=== PATIENT | male | born 1980 | race Two or more races ===

== ENCOUNTER 2020-08-30 08:03 | Emergency (ER) | payer SELFPAY ==
[2020-08-30 08:20] VITALS: BP 127/88; PULSE 71; RESP 16; TEMP 36.4; O2SAT 97; BMI 30.7
--- NOTE | 2020-08-30 08:29 | XR_ITS ---
EXAMINATION: XR SHOULDER, RIGHT CLINICAL INFORMATION: Pain COMPARISON: None TECHNIQUE: Three views of the right shoulder. FINDINGS: Bone alignment is normal. No fracture or dislocation is seen. The glenohumeral joint is normal. There is arthritis at the acromioclavicular joint. Soft tissues are unremarkable. XR/XR shoulder RT min 2V IMPRESSION: Arthritis at the acromioclavicular joint.
--- NOTE | 2020-08-30 08:59 | ED.EXTPRO ---
HPI - Extremity Problem General Chief complaint: Extremity Injury, Upper Stated complaint: R SHOULDER PAIN Time Seen by Provider: 08/30/20 08:29 Source: patient Mode of arrival: ambulatory Limitations: no limitations History of Present Illness HPI Narrative: 40yoM c No Sig PMHx presenting to the ED c c/o atraumatic right shoulder pain radiating to fingers with associated tingling for the past week. Denies injury. 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 Denies any additional complaints or concerns at this time. Related Data Previous Rx's Medication Instructions Recorded cyclobenzaprine 10 mg PO TID PRN #10 tab 08/30/20 naproxen 500 mg PO BID PRN #10 tab 08/30/20 oxycodone-acetaminophen [Percocet] 1 tab PO Q6H PRN #10 tab 08/30/20 prednisone 20 mg PO DAILY 5 Days #5 tab 08/30/20 Allergies Allergy/AdvReac Type Severity Reaction Status Date / Time No Known Allergies [NKA] Allergy Mild NOT Unverified 07/04/20 17:11 APPLICABLE Review of Systems Review of Systems: Constitutional : No Fever, No Chills Cardiovascular : No Chest Pain, No SOB, No Dyspnea on Exertion, No Orthopnea, No Edema, No Palpitations Respiratory : No Cough, No Sputum, No Wheezing, No Dyspnea Musculoskeletal : + joint pain, No Myalgias, No Joint Swelling Skin : No Skin Lesions, No rash Neuro : No Weakness, + Numbness, + Paresthesias Yes all other systems are reviewed and are negative [facility] Past Medical History Attestation statement: The following information was validated with the patient. Social History Social History Advance Directives: No Advance Directives Information Provided: No Physical Exam Vital Signs: Vital Signs: Last Vital Signs Temp 97.5 F 08/30/20 08:20 Pulse 71 08/30/20 08:20 Resp 16 08/30/20 08:20 BP 127/88 08/30/20 08:20 Pulse Ox 97 08/30/20 08:20 Body Mass Index 30.7 vital signs have been reviewed as normal and appeared to be correct. Blood pressure normal. Heart rate normal. Respiration rate normal. Temperature normal. Oxygen saturation normal. Appearance: Alert. Oriented X3. No acute distress. Head: Normal external exam. Normocephalic. Atraumatic. Eyes: PERRLA. EOMI. Conjunctiva and sclera normal. Eyelids normal. ENT: EAC normal. Pharynx normal. Uvula midline. Moist mucous membranes. Neck: Normal inspection. Neck supple. FROM. No meningeal signs. Nontender. CVS: Normal heart rate and rhythm. Heart sound normal. No murmurs noted. Pulses normal throughout. Respiratory: No respiratory distress. Painless inspiration. Breath sounds normal. Back: Full range of motion noted. Skin: Skin warm and dry. Normal skin color. Normal skin turgor. No rashes/lesions/lacerations noted. Extremities: TTP of right shoulder at AC joint. Pt has FROM. No edema noted. No erythema or signs of infection. All Extremities exhibit normal range of motion. All other Extremities nontender. Neuro: Oriented X 3. No motor deficit. No sensory deficit. Reflexes normal. Course Course Course Narrative: 40yoM c No Sig PMHx presenting to the ED c c/o atraumatic right shoulder pain radiating to fingers with associated tingling for the past week. Denies injury. 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 Denies any additional complaints or concerns at this time. - x-ray imaging of right shoulder obtained if within normal limits will DC home with symptomatic treatment along with PCP referral instructions to return if any new or worsening symptoms. Patient understands agrees the plan. MDM - Extremity (Nontraumatic) Medical Records Attestation: I reviewed the patient's medical records. Imaging Data right shoulder: Attestation: I personally reviewed and interpreted this imaging study as follows: Radiologist's impression: FINDINGS: Bone alignment is normal. No fracture or dislocation is seen. The glenohumeral joint is normal. There is arthritis at the acromioclavicular joint. Soft tissues are unremarkable. XR/XR shoulder RT min 2V IMPRESSION: Arthritis at the acromioclavicular joint. Discharge Plan Discharge Clinical Impression: Arthritis Patient Disposition: Home, Self-Care Instructions: Arthritis (ED) Additional Instructions: I provided a few numbers below for primary care providers that you should call and schedule an appointment for new primary care provider. Prescriptions: New prednisone 20 mg tablet 20 mg PO DAILY 5 Days Qty: 5 RF: 0 naproxen 500 mg tablet 500 mg PO BID PRN (Reason: pain) Qty: 10 RF: 0 cyclobenzaprine 10 mg tablet 10 mg PO TID PRN (Reason: muscle spasm) Qty: 10 RF: 0 oxycodone-acetaminophen [Percocet] 5-325 mg tablet 1 tab PO Q6H PRN (Reason: pain) Qty: 10 RF: 0 Referrals: [facility] [Provider Group] - 2 days [facility] [Provider Group] - 2 days [facility] [Provider Group] - 2 days [facility] [Provider Group] - 2 days [facility] [place] [facility] [Provider Group] - 2 days [facility] [Provider Group] - 2 days Stand Alone Forms: Work/School Release Print Language: Bulgarian
== END 2020-08-30 09:46 | disposition home or self-care (01) ==
PROVIDERS: Emergency Provider Emergency Medicine
DX: M19.011 Primary osteoarthritis, right shoulder (principal); M25.511 Pain in right shoulder; Z79.899 Other long term (current) drug therapy
CPT/HCPCS: 73030; 99283

== ENCOUNTER 2022-07-30 20:07 | Emergency (ER) | payer OTHER, SELFPAY ==
--- NOTE | ~2022-07-30 | XR_ITS ---
EXAMINATION: XR CHEST CLINICAL INFORMATION: Fever of unknown origin COMPARISON: 11/27/2019 TECHNIQUE: Frontal view of the chest was obtained. FINDINGS: The lungs are clear with no focal consolidation. No evidence of pneumothorax, pulmonary edema, or pleural effusions. The cardiomediastinal silhouette is unremarkable. No acute osseous findings. XR/XR chest 1V IMPRESSION: No acute cardiopulmonary findings.
[2022-07-30 20:12] VITALS: BP 139/64; PULSE 120; RESP 18; TEMP 38.2; O2SAT 98; BMI 30.7
[2022-07-30] MEDS: Acetaminophen 325 MG TABLET 650 MG PO (20:17)
--- NOTE | 2022-07-30 20:18 | ECG_ITS ---
Test Reason : tachycardia Blood Pressure : / mmHG Vent. Rate : 116 BPM Atrial Rate : 116 BPM P-R Int : 142 ms QRS Dur : 076 ms QT Int : 288 ms P-R-T Axes : 042 044 001 degrees QTc Int : 400 ms Sinus tachycardia Low voltage QRS Possible Left atrial enlargement Borderline ECG When compared with ECG of 28-FEB-2009 16:05, Vent. rate has increased BY 39 BPM Referred By: Generic ED Physician Electronically Signed By:NATHANAEL DEL CID MD
[2022-07-30 20:33] LABS: MANUAL DIFF FLAG NO
[2022-07-30 20:35] LABS: Basophils Percent Auto 0.4 % (0-2); Eosinophils Percent Auto 0.6 % (0-4); Hematocrit 40.6 % (42.0-52.0); Hemoglobin 14.2 g/dl (14.0-18.0); Imm Gran Abs Auto 0.01 X10*3/uL (0.00-0.03); Imm Gran Pct Auto 0.2 % (0.0-0.4); Lymphocytes Absolute Auto 0.6 X10*3/uL (1.2-4.9); Lymphocytes Percent Auto 12.2 % (20-40); Mean Corpuscular Volume 85.8 fL (80.0-98.0); Mean Platelet Volume 9.9 fL (9.4-12.4); Monocytes Absolute Auto 0.6 X10*3/uL (0.1-1.2); Monocytes Percent Auto 12.2 % (2-11); Neutrophils Absolute Auto 3.9 x10*3/uL (2.0-8.3); Neutrophils Percent Auto 74.4 % (45-73); Platelet Count 183 X10*3/uL (160-400); Red Blood Count 4.73 X10*6/uL (4.60-5.80); Red Cell Distribution Width 11.9 % (11.0-16.0); White Blood Count 5.3 X10*3/uL (4.8-10.8)
[2022-07-30 20:50] LABS: COVID-19 Test Negative (Negative)
[2022-07-30 20:52] LABS: Alanine Aminotransferase 71 U/L (0-40); Albumin Level 4.6 g/dL (3.5-5.0); Alkaline Phosphatase 154 U/L (39-117); Anion Gap 14 (12-20); Aspartate Amino Transferase 40 U/L (5-37); Bilirubin Direct 0.5 mg/dL (0.0-0.5); Bilirubin Total 1.3 mg/dL (0.0-1.0); Blood Urea Nitrogen 14 mg/dL (9-16); Calcium 9.3 mg/dL (8.4-10.2); Carbon Dioxide 25 mmol/L (22-29); Chloride 101 mmol/L (96-108); Creatinine Clr Calc Pharmacy 93.2; Estimated Glomerular Filt Rate > 60; Glucose Random 150 mg/dL (60-115); Lipase 27 U/L (8-78); Potassium 4.9 mmol/L (3.3-5.1); Sodium 135 mmol/L (135-145); Total Protein 7.5 g/dL (6.5-8.0)
[2022-07-30 20:54] LABS: IDNOW Serial# 55D5AD1C; Influenza A Negative (Negative); Influenza B2 Negative (Negative)
[2022-07-30 23:12] VITALS: BP 137/80; PULSE 104; RESP 18; TEMP 37.7; O2SAT 98
--- NOTE | 2022-07-31 | ED_ITS ---
HPI - General Adult General Chief complaint: Upper Respiratory Symptoms Stated complaint: feels ill after flu shot Time Seen by Provider: 07/30/22 23:30 Source: patient Mode of arrival: ambulatory Limitations: no limitations History of Present Illness HPI narrative: 42-year-old male presents to the emergency department complaining of flu-like symptoms and body aches and paisn since last Wednesday. Patient reports he received the flu vaccine on Wednesday and began feeling ill on Wednesday. Patient reports he is experiencing body aches, fever, fatigue, and generalized weakness since Wednesday. Patient reports that he has tried taking ibuprofen which relieved his symptoms, however then they return. Reports of subjective fevers at home. Also vague complaints of headache, feels like his typical no truama a/c w/ this no vision changes or dizziness. Patient has received flu vaccine in the past and reports he has not experienced these symptoms. Denies shortness of breath, chest pain, abdominal pain, nausea or vomiting, leg swelling, dizziness,, changes in speech, cough, rhinorrhea, sore throat. Denies sick c ontacts Related Data Previous Rx's Medication Instructions Recorded cyclobenzaprine 10 mg tablet 10 mg PO TID PRN muscle spasm #10 08/30/20 tabs naproxen 500 mg tablet 500 mg PO BID PRN pain #10 tabs 08/30/20 oxycodone-acetaminophen 5 mg-325 1 tab PO Q6H PRN pain #10 tabs 08/30/20 mg tablet (Percocet) prednisone 20 mg tablet 20 mg PO DAILY inflammation 5 08/30/20 days #5 tabs Allergies Allergy/AdvReac Type Severity Reaction Status Date / Time No Known Allergies [NKA] Allergy Mild NOT Unverified 07/04/20 17:11 APPLICABLE Review of Systems Review of Systems: Constitutional : No Weight loss, + Fever, No Chills, + Fatigue, + Malaise ENT/Mouth : No sore throat, No Rhinorrhea Eyes: No Eye Pain, No Swelling, No Redness Cardiovascular : No Chest Pain, No SOB, No Dyspnea on Exertion, No Orthopnea, No Edema, No Palpitations Respiratory : No Cough, No Sputum, No Wheezing Gastrointestinal : No Nausea, No Vomiting, No Diarrhea, No Constipation, No abdominal Pain, No Hematochezia, No Melena Genitourinary : No Dysuria, No Urinary Frequency, No Hematuria, Musculoskeletal : No joint pain, + Myalgias, No Joint Swelling Skin : No Skin Lesions, No rash Neuro : No Weakness, No Numbness, No Dizziness, No Headache Psych : No Anxiety/Panic, No Depression All other systems reviewed and are negative Yes all other systems are reviewed and are negative [facility] Past Medical History Attestation statement: The following information was validated with the patient. Source: old records reviewed and nursing notes reviewed Social History Social History Advance Directives: No Advance Directives Information Provided: No Physical Exam ED Vital Signs: Vital Signs - 24 hr 07/30/22 20:12 07/30/22 23:12 Temperature 100.8 F H 99.9 F Pulse Rate 120 H 104 H Respiratory Rate 18 18 Blood Pressure 139/64 137/80 Pulse Oximetry 98 98 Oxygen Delivery Method Room Air Room Air BMI result Body Mass Index 30.7 vss Appearance: Alert.? Oriented X3.? No acute distress.? Head: Normocephalic, atraumatic, no step-offs or deformities Eyes: Pupils equal, round and reactive to light.? Extraocular movements intact. ENT: Pharynx normal.? Neck: Normal inspection.? Neck supple.? No meningeal signs. CVS: Normal heart rate and rhythm.? Pulses normal.? Respiratory: No respiratory distress.? Breath sounds normal.? Abdomen: Soft and nontender.? Skin: Skin warm and dry.? Normal skin color.? Normal skin turgor.? Extremities: No lower extremity edema.? No calf ttp. 5/5 strength to bilateral upper and lower extremities Back: No midline tenderness, no C-spine tenderness, full range of motion, no CVA tenderness bilaterally Neuro: Oriented X 3.? No motor deficit.? No sensory deficit. CN 2-12 intact. Patient ambulating with steady gait, normal coordination. Normal [id number], [id number], rapid alternating movements intact. Course Reevaluation(s) Reevaluation #1: CBC appears to be within normal limits. Chemistry with no acute findings. Transaminases slightly elevated and alk-phos also slightly elevated however patient not tender to palpation of abdomen on exam. No signs of acute abdomen on my examination. Total creatinine kinase slightly elevated however not meeting criteria for rhabdomyolysis. Patient tolerating p.o., temperature went down after administering Tylenol. Chest x-ray within normal limits. COVID and influenza negative. Favoring the most likely diagnosis of adverse vaccine reaction or viral illness. Time: 00:10 Medical Decision Making [facility] Narrative Medical decision making narrative: 0007 42-year-old male presents with flu like symptoms after receiving the flu shot, symptoms have been going on for 4-5 days. Physical examination benign. Neuro exam nonfocal. No meningeal signs. Patient was noted to be febrile, he was given medication and temperature went down. He is noted to be tachycardic however likely secondary to fever. Likely viral infection versus vaccine reaction. Will rule out rhabdomyolysis. History and physical examination not consistent with meningitis, encephalitis, PE, pneumonia, ACS, posterior stroke, stroke. No signs of sepsis. Plan at this time is to obtain basic labs, chest x-ray, flu/COVID. Medical Records Medical records reviewed: Yes I reviewed the patient's medical records. Lab Data Lab results reviewed: Yes I reviewed the patient's lab results. Result diagrams: 07/30/22 20:29 07/30/22 20:29 Labs: Lab Results 07/30/22 07/30/22 07/30/22 Range/Units 20:29 20:29 20:29 WBC 5.3 (4.8-10.8) X10*3/uL RBC 4.73 (4.60-5.80) X10*6/uL Hgb 14.2 (14.0-18.0) g/dl Hct 40.6 L (42.0-52.0) % MCV 85.8 (80.0-98.0) fL MCH 30.0 (27.0-33.0) pg MCHC 35.0 (31.0-36.0) g/dl RDW 11.9 (11.0-16.0) % Plt Count 183 (160-400) X10*3/uL MPV 9.9 (9.4-12.4) fL Immature Gran % (Auto) 0.2 (0.0-0.4) % Neut % (Auto) 74.4 H (45-73) % Lymph % (Auto) 12.2 L (20-40) % Kingfisher % (Auto) 12.2 H (2-11) % Eos % (Auto) 0.6 (0-4) % Baso % (Auto) 0.4 (0-2) % Lymph # (Auto) 0.6 L (1.2-4.9) X10*3/uL [place] # (Auto) 0.6 (0.1-1.2) X10*3/uL Eos # (Auto) 0.0 (0.0-0.4) X10*3/uL Baso # (Auto) 0.0 (0.0-0.2) X10*3/uL Abs Immat Gran (auto) 0.01 (0.00-0.03) X10*3/uL Absolute Neuts (auto) 3.9 (2.0-8.3) x10*3/uL Absolute Nucleated RBC 0.000 (0.0-0.012) X10*3/uL Nucleated RBC % (auto) 0.0 (0.0-0.2) /100WBC Sodium (135-145) mmol/L Potassium (3.3-5.1) mmol/L Chloride (96-108) mmol/L Carbon Dioxide (22-29) mmol/L Anion Gap (12-20) BUN (9-16) mg/dL Creatinine (0.5-1.4) mg/dL Estim Creat Clear Calc Estimated GFR Random Glucose (60-115) mg/dL Calcium (8.4-10.2) mg/dL Total Bilirubin (0.0-1.0) mg/dL Direct Bilirubin (0.0-0.5) mg/dL AST (5-37) U/L ALT (0-40) U/L Alkaline Phosphatase (39-117) U/L Total Creatine Kinase (38-174) U/L Total Protein (6.5-8.0) g/dL Albumin (3.5-5.0) g/dL Lipase (8-78) U/L COVID-19 ([facility]) Negative (Negative) COVID-19 Clin Com See Note Influenza Type A (ASAF) Negative (Negative) Influenza Type B (ASAF) Negative (Negative) Influenza A & B Note See Note 07/30/22 Range/Units 20:29 WBC (4.8-10.8) X10*3/uL RBC (4.60-5.80) X10*6/uL Hgb (14.0-18.0) g/dl Hct (42.0-52.0) % MCV (80.0-98.0) fL MCH (27.0-33.0) pg MCHC (31.0-36.0) g/dl RDW (11.0-16.0) % Plt Count (160-400) X10*3/uL MPV (9.4-12.4) fL Immature Gran % (Auto) (0.0-0.4) % Neut % (Auto) (45-73) % Lymph % (Auto) (20-40) % Kingfisher % (Auto) (2-11) % Eos % (Auto) (0-4) % Baso % (Auto) (0-2) % Lymph # (Auto) (1.2-4.9) X10*3/uL [place] # (Auto) (0.1-1.2) X10*3/uL Eos # (Auto) (0.0-0.4) X10*3/uL Baso # (Auto) (0.0-0.2) X10*3/uL Abs Immat Gran (auto) (0.00-0.03) X10*3/uL Absolute Neuts (auto) (2.0-8.3) x10*3/uL Absolute Nucleated RBC (0.0-0.012) X10*3/uL Nucleated RBC % (auto) (0.0-0.2) /100WBC Sodium 135 (135-145) mmol/L Potassium 4.9 (3.3-5.1) mmol/L Chloride 101 (96-108) mmol/L Carbon Dioxide 25 (22-29) mmol/L Anion Gap 14 (12-20) BUN 14 (9-16) mg/dL Creatinine 1.04 (0.5-1.4) mg/dL Estim Creat Clear Calc 93.2 Estimated GFR > 60 Random Glucose 150 H (60-115) mg/dL Calcium 9.3 (8.4-10.2) mg/dL Total Bilirubin 1.3 H (0.0-1.0) mg/dL Direct Bilirubin 0.5 (0.0-0.5) mg/dL AST 40 H (5-37) U/L ALT 71 H (0-40) U/L Alkaline Phosphatase 154 H (39-117) U/L Total Creatine Kinase 181 H (38-174) U/L Total Protein 7.5 (6.5-8.0) g/dL Albumin 4.6 (3.5-5.0) g/dL Lipase 27 (8-78) U/L COVID-19 ([facility]) (Negative) COVID-19 Clin Com Influenza Type A (ASAF) (Negative) Influenza Type B (ASAF) (Negative) Influenza A & B Note Critical Care Time Critical Care Time Critical Care Time: No Discharge Plan Discharge Clinical Impression: Viral infection, Adverse effect of vaccine Patient Disposition: Home, Self-Care Instructions: Viral Syndrome (ED) Additional Instructions: Take your medications as prescribed. If you were prescribed antibiotics today, it is important that you take your medication to their entirety, do not skip any doses, do not finish them early. Follow-up with your primary care provider this week. Return to the emergency department with new or worsening symptoms. Such as fevers, chills, chest pain, shortness of breath, nausea, vomiting, dizziness, headache, vision changes, lethargy, weakness, changes in speech, weakness.. In case of emergency call 911 You can take ibuprofen every 6 hours, Tylenol every 4 as needed for pain discomfort fevers. Drink plenty of fluids. New or worsening symptoms should warrant emergency department re-evaluation. XR/XR chest 1V IMPRESSION: No acute cardiopulmonary findings. ? Prescriptions: No Action prednisone 20 mg tablet 20 mg PO DAILY 5 Days Qty: 5 0RF naproxen 500 mg tablet 500 mg PO BID PRN (Reason: pain) Qty: 10 0RF cyclobenzaprine 10 mg tablet 10 mg PO TID PRN (Reason: muscle spasm) Qty: 10 0RF oxycodone-acetaminophen [Percocet] 5-325 mg tablet 1 tab PO Q6H PRN (Reason: pain) Qty: 10 0RF Referrals: Physician,Unknown J [Primary Care Provider] - 2 days Stand Alone Forms: Work/School Release
[2022-07-31] MEDS: Ketorolac Tromethamine 15 MG/ML VIAL 30 MG IM (00:26)
== END 2022-07-31 00:29 | disposition home or self-care (01) ==
PROVIDERS: Physician Assistant; Emergency Provider Internal Medicine
DX: B34.9 Viral infection, unspecified (principal); R50.9 Fever, unspecified; T50.B95A Adverse effect of other viral vaccines, initial encounter; Y92.019 Unspecified place in single-family (private) house as the place of occurrence of the external cause; Z20.822 Contact with and (suspected) exposure to COVID-19
CPT/HCPCS: 36415; 71045; 80053; 82248; 82550; 83690; 85025; 87502; 87635; 93005; 96372; 99284; J1885

== ENCOUNTER 2023-04-10 13:45 | Emergency (ER) | payer OTHER, SELFPAY ==
[2023-04-10 14:08] VITALS: BP 116/70; PULSE 98; RESP 16; TEMP 36.6; O2SAT 95; BMI 31.5
--- NOTE | 2023-04-10 16:58 | ED_ITS ---
HPI - General Adult General Chief complaint: Extremity Injury, Lower Stated complaint: l foot pain Time Seen by Provider: 04/10/23 15:10 History of Present Illness HPI narrative: patient complains of left foot pain without injury for several days, he does have a history of gout but only in his big toe and now it is hurting the foot and the ankle, he says the foot is swollen with some redness, denies any fever or chills has no numbness or weakness has no other skin complaints or extremity complaints Related Data Previous Rx's Medication Instructions Recorded cyclobenzaprine 10 mg tablet 10 mg PO TID PRN muscle spasm #10 08/30/20 tabs naproxen 500 mg tablet 500 mg PO BID PRN pain #10 tabs 08/30/20 oxycodone-acetaminophen 5 mg-325 1 tab PO Q6H PRN pain #10 tabs 08/30/20 mg tablet (Percocet) prednisone 20 mg tablet 20 mg PO DAILY inflammation 5 08/30/20 days #5 tabs acetaminophen 500 mg tablet 1,000 mg PO TID PRN pain #30 tabs 04/10/23 cephalexin 500 mg tablet 500 mg PO QID 5 days #20 tabs 04/10/23 ibuprofen 800 mg tablet 800 mg PO Q8H PRN pain #20 tabs 04/10/23 oxycodone 5 mg tablet 5 mg PO Q6H PRN pain #14 tabs 04/10/23 prednisone 20 mg tablet 60 mg PO DAILY 4 days #12 tabs 04/10/23 Allergies Allergy/AdvReac Type Severity Reaction Status Date / Time No Known Allergies [NKA] Allergy Mild NOT Unverified 04/10/23 14:08 APPLICABLE [facility] Past Medical History Source: nursing notes reviewed Social History Social History Advance Directives: No Advance Directives Information Provided: No Physical Exam ED Vital Signs: Vital Signs - 24 hr 04/10/23 14:08 Temperature 98 F Pulse Rate 98 Respiratory Rate 16 Blood Pressure 116/70 Pulse Oximetry 95 Oxygen Delivery Method Room Air BMI result Body Mass Index 31.5 general appearance is no distress The neck is supple Respiratory no distress Extremities full range of motion x4 The left ankle and foot there is redness on the dorsum of the foot it is tender to the touch it is mildly swollen there is no fluctuance there is no wound, the ankle has full range of motion but it was mildly uncomfortable, toes have full range of motion there is no red stripe up the leg there is no calf tenderness no upper leg tenderness, only tenderness is dorsum of the foot and the ankle Other extremities normal Course Course Course Narrative: patient is advised this is likely gout of the foot or the ankle and the foot, but as there was redness warmth and tenderness there is a chance it is a cellulitis so he is treated for both conditions Gout is treated with prednisone Motrin and analgesics, possible cellulitis treated with Keflex for 5 days He is discharged from the ER ambulating with a limp, no evidence of septic joint, good range of motion in ankle and foot Discharge Plan Discharge Clinical Impression: Gout, Cellulitis Patient Disposition: Home, Self-Care Additional Instructions: this is probably gout but might be a skin infection so I am treating for both gout and possible skin infection cellulitis with Keflex antibiotic Follow with primary doctor Return to the ER any time for any worse condition or any concerns Prescriptions: New prednisone 20 mg tablet 60 mg PO DAILY 4 Days Qty: 12 0RF ibuprofen 800 mg tablet 800 mg PO Q8H PRN (Reason: pain) Qty: 20 0RF oxycodone 5 mg tablet 5 mg PO Q6H PRN (Reason: pain) Qty: 14 0RF Rx Instructions: Partial Fill upon patient request. acetaminophen 500 mg tablet 1,000 mg PO TID PRN (Reason: pain) Qty: 30 0RF cephalexin 500 mg tablet 500 mg PO QID 5 Days Qty: 20 0RF No Action prednisone 20 mg tablet 20 mg PO DAILY 5 Days Qty: 5 0RF naproxen 500 mg tablet 500 mg PO BID PRN (Reason: pain) Qty: 10 0RF cyclobenzaprine 10 mg tablet 10 mg PO TID PRN (Reason: muscle spasm) Qty: 10 0RF oxycodone-acetaminophen [Percocet] 5-325 mg tablet 1 tab PO Q6H PRN (Reason: pain) Qty: 10 0RF
[2023-04-10] MEDS: predniSONE 20 MG TABLET 60 MG PO (17:09)
[2023-04-10] MEDS: Acetaminophen 325 MG TABLET 975 MG PO (17:09)
[2023-04-10] MEDS: cephALEXin 500 MG CAPSULE PO (17:10)
[2023-04-10] MEDS: Ibuprofen 800 MG TABLET PO (17:10)
== END 2023-04-10 17:20 | disposition home or self-care (01) ==
PROVIDERS: Emergency Provider Emergency Medicine
DX: M10.9 Gout, unspecified (principal); L03.116 Cellulitis of left lower limb; M79.672 Pain in left foot; Z79.899 Other long term (current) drug therapy
CPT/HCPCS: 99283

== ENCOUNTER 2024-05-06 05:46 | Emergency (ER) | payer OTHER, SELFPAY ==
--- NOTE | ~2024-05-06 | XR_ITS ---
EXAMINATION: XR CHEST CLINICAL INFORMATION: Cough. COMPARISON: 07/30/2022 TECHNIQUE: Frontal view of the chest was obtained. FINDINGS: No significant abnormality is noted involving the heart, lungs, mediastinum, bony thorax or soft tissues. XR/XR chest 1V IMPRESSION: Unremarkable examination.
[2024-05-06 05:56] VITALS: BP 128/80; PULSE 95; RESP 18; TEMP 36.6; O2SAT 99; BMI 31.5
[2024-05-06 06:19] LABS: IDNOW Serial# 6674DD1D; Strep A Nucleic Acid Negative (Negative)
[2024-05-06 06:20] VITALS: O2SAT 97
[2024-05-06 06:46] LABS: Influenza A PCR NEGATIVE (Negative); Influenza B PCR NEGATIVE (Negative); Resp Syncy Virus RNA Qual PCR NEGATIVE (Negative); SARS COV2 PCR INHOUSE NEGATIVE (Negative)
--- NOTE | 2024-05-06 06:53 | ED_ITS ---
HPI - URI/Sore Throat General Chief Complaint: Upper Respiratory Symptoms Stated Complaint: throat hurts Time Seen by Provider: 05/06/24 06:27 Source: patient Mode of arrival: ambulatory Limitations: no limitations History of Present Illness ED Provider: Sravan Zazueta PA-C HPI Narrative: 43 yo male presents to the ER for evaluation of sore throat and cough for the last 10 days. He states he has had a sore throat for almost 2 weeks now. Pain is worse in the morning and with swallowing. He is eating and drinking normally. He states he feels like he has some swollen lymph nodes in his neck. He also has some cough and congestion in his chest. He has intermittent runny nose. No history of seasonal allergies, no itchy or watery eyes. No fevers, nausea, vomiting, abdominal pain. No known sick contacts. No chest pain. MD elicited complaint: cough, sore throat, rhinorrhea and nasal congestion Onset (ago): week(s) (2) Consistency: intermittent Severity: moderate Description of mucous: clear and watery Able to tolerate fluids by mouth: Yes Exacerbating factors: swallowing Relieving factors: nothing Associated symptoms: nasal congestion and ear pain Treatments prior to arrival: none Related Data Previous Rx's ?Medication ?Instructions ?Recorded cyclobenzaprine 10 mg tablet 10 mg PO TID PRN muscle spasm #10 08/30/20 tabs naproxen 500 mg tablet 500 mg PO BID PRN pain #10 tabs 08/30/20 oxycodone-acetaminophen 5 mg-325 1 tab PO Q6H PRN pain #10 tabs 08/30/20 mg tablet (Percocet) prednisone 20 mg tablet 20 mg PO DAILY inflammation 5 08/30/20 days #5 tabs acetaminophen 500 mg tablet 1,000 mg (2 x 500 mg) PO TID PRN 04/10/23 pain #30 tabs cephalexin 500 mg tablet 500 mg PO QID 5 days #20 tabs 04/10/23 ibuprofen 800 mg tablet 800 mg PO Q8H PRN pain #20 tabs 04/10/23 oxycodone 5 mg tablet 5 mg PO Q6H PRN pain #14 tabs 04/10/23 prednisone 20 mg tablet 60 mg (3 x 20 mg) PO DAILY 4 days 04/10/23 #12 tabs benzonatate 100 mg capsule 100 mg PO TID PRN cough #20 caps 05/06/24 fluticasone propionate 50 2 spray intranasal DAILY #16 grams 05/06/24 mcg/actuation nasal spray,suspension (Flonase Allergy Relief) Allergies Allergy/AdvReac Type Severity Reaction Status Date / Time No Known Allergies [NKA] Allergy Mild NOT Verified 05/06/24 05:57 APPLICABLE Review of Systems Review of Systems: Yes all other systems are reviewed and are negative [facility] Social History Social History Alcohol intake: never Smoked in Last 30 Days: No Use of substances other than those prescribed or required for medical reasons: No Advance Directives: No Advance Directives Information Provided: No Do you have a plan to hurt others: No Plan Physical Exam Vital Signs: Vital Signs: Last Vital Signs Temp 98.0 F 05/06/24 07:05 Pulse 81 05/06/24 07:05 Resp 17 05/06/24 07:05 BP 121/79 05/06/24 07:05 Pulse Ox 97 05/06/24 07:05 O2 Del Method Room Air 05/06/24 07:05 BMI result Body Mass Index 31.5 Appearance: Alert. Oriented X3. No acute distress. Head: normocephalic, atraumatic. Eyes: Pupils equal, round and reactive to light. No scleral injection ENT: Pharynx with mild generalized erythema posteriorly. No tonsillar swelling or exudate. Normal voice, handling secretions normally. Normal tympanic membranes bilaterally. Neck: Normal inspection. Mild bilateral lymphadenopathy along the anterior cervical chains CVS: Normal heart rate and rhythm. Pulses normal. Respiratory: No respiratory distress. Breath sounds normal. Abdomen: Soft and nontender. +BS x4 Skin: Skin warm and dry. Normal skin color. Normal skin turgor. No rashes. Extremities: No lower extremity edema. No joint swelling. Neuro/psych: Oriented X 3. Grossly normal, nonfocal. Normal speech and cognition Medical Decision Making Medical Decision Making MDM Narrative: 43-year-old male with no medical history presents to the ER for evaluation of sore throat, cough, runny nose for the last 2 weeks. No fevers. On arrival to the ER he is hemodynamically stable, nontoxic appearing. Vital signs are stable. Exam is largely unremarkable, he has mild posterior pharyngeal erythema without any evidence of tonsillar abscess. He is handling secretions normally. His lung sounds are clear to auscultation. Low clinical suspicion for pneumonia. Chest x-ray reviewed, no infiltrate or effusion. His viral studies were also negative today. Strep throat was negative. His symptoms most likely due to a viral process versus possible seasonal allergies. We discussed supportive care. Will start Flonase for nasal congestion, postnasal drip leading to sore throat. Tessalon also prescribed. Stable for discharge home with supportive care and outpatient follow-up as needed. Differential Diagnosis Differential Diagnoses: The differential diagnosis associated with the presentation includes strep, covid, flu, rsv, other viral syndrome, bronchitis, pneumonia, no evidence of peritonsillar abcsess or retropharyngeal abscess Lab Data MDM Lab Attestation statement: I reviewed the patient's lab results. Negative studies Labs: Lab Results 05/06/24 Range/Units 06:02 Influenza Type A (PCR) NEGATIVE (Negative) Influenza Type B (PCR) NEGATIVE (Negative) RSV RNA Qual (PCR) NEGATIVE (Negative) SARS-CoV-2 RNA (RT-PCR) NEGATIVE (Negative) S. pyogenes GrpA ASAF Negative (Negative) Independent Interpretation I performed an independent interpretation of an: Plain X-Ray Interpretation: No infiltrate or effusion, agree with radiology read Radiology Impression Discussion of test interpretation with radiology: I have reviewed the radiologist's reading. Radiologist Impression: EXAMINATION: XR CHEST CLINICAL INFORMATION: Cough. COMPARISON: 07/30/2022 TECHNIQUE: Frontal view of the chest was obtained. FINDINGS: No significant abnormality is noted involving the heart, lungs, mediastinum, bony thorax or soft tissues. XR/XR chest 1V IMPRESSION: Unremarkable examination. External Record Review External record reviewed: Outpatient record and Prior outpatient labs Tests considered The following testing was considered but not selected: Considered lab workup however symptoms are mild, exam is reassuring, vital signs are stable Prescription Management I considered prescription management with: Pain Medication and Antibiotic Critical Care Time Critical Care Time Critical Care Time: No Discharge Plan Discharge Clinical Impression: Upper respiratory infection Patient Disposition: Home, Self-Care Instructions: Upper Respiratory Infection (DC) Additional Instructions: Negative for strep throat, COVID, flu, RSV. Your chest x-ray was normal. You may have a viral illness that is taking time to resolve. Treatment is supportive care, rest, plenty of oral hydration, [id number] cold and flu medications for your symptoms. You also may have some postnasal drip from possible seasonal allergies Recommend starting the prescribed nasal spray to help decrease runny nose and throat pain. Take the prescribed medication as needed for cough Recommend warm salt water gargles 3 times per day. Recommend Cepacol lozenges or Chloraseptic spray for your sore throat. Take Tylenol and Motrin as needed for pain. Follow-up with your doctor as needed. If you develop new or worsening symptoms call 911 or come back to the ER for further evaluation. Prescriptions: New fluticasone propionate [Flonase Allergy Relief] 50 mcg/actuation spray,suspension 2 spray intranasal DAILY Qty: 16 0RF Rx Instructions: administer into each nostril benzonatate 100 mg capsule 100 mg PO TID PRN (Reason: cough) Qty: 20 0RF No Action prednisone 20 mg tablet 20 mg PO DAILY 5 Days Qty: 5 0RF naproxen 500 mg tablet 500 mg PO BID PRN (Reason: pain) Qty: 10 0RF cyclobenzaprine 10 mg tablet 10 mg PO TID PRN (Reason: muscle spasm) Qty: 10 0RF oxycodone-acetaminophen [Percocet] 5-325 mg tablet 1 tab PO Q6H PRN (Reason: pain) Qty: 10 0RF prednisone 20 mg tablet 60 mg PO DAILY 4 Days Qty: 12 0RF ibuprofen 800 mg tablet 800 mg PO Q8H PRN (Reason: pain) Qty: 20 0RF oxycodone 5 mg tablet 5 mg PO Q6H PRN (Reason: pain) Qty: 14 0RF Rx Instructions: Partial Fill upon patient request. acetaminophen 500 mg tablet 1,000 mg PO TID PRN (Reason: pain) Qty: 30 0RF cephalexin 500 mg tablet 500 mg PO QID 5 Days Qty: 20 0RF Interventions: ED Discharge Assessment Last Done: 05/06/24 07:05 Discharge Date/Time: 05/06/24 07:06 Print Language: Danish
[2024-05-06 07:03] VITALS: BP 121/79; PULSE 81; RESP 17; TEMP 36.6; O2SAT 97
[2024-05-06 07:05] VITALS: BP 121/79; PULSE 81; RESP 17; TEMP 36.7; O2SAT 97
== END 2024-05-06 07:06 | disposition home or self-care (01) ==
PROVIDERS: Emergency Provider Internal Medicine
DX: J06.9 Acute upper respiratory infection, unspecified (principal); J02.9 Acute pharyngitis, unspecified; R05.9 Cough, unspecified; Z03.818 Encounter for observation for suspected exposure to other biological agents ruled out
CPT/HCPCS: 0241U; 71045; 87651; 99283; 99284

== ENCOUNTER 2024-07-24 19:55 | Emergency (ER) | payer OTHER, SELFPAY ==
[2024-07-24 20:17] VITALS: BP 123/81; PULSE 82; RESP 18; TEMP 36.7; O2SAT 97; BMI 31.0
--- NOTE | 2024-07-24 20:17 | ED_ITS ---
HPI - Ear Problem General Stated complaint: bilateral ear pain Time Seen by Provider: 07/24/24 20:20 Source: patient Mode of arrival: ambulatory Limitations: no limitations History of Present Illness ED Provider: Sravan Zazueta PA-C HPI Narrative: 44-year-old male presents to the ER for evaluation of bilateral ear pain, right worse than left for the last 3 or 4 days. He feels like his hearing is muffled. He has throbbing pain in the ears, no drainage. He has been sick with runny nose, nasal congestion and sinus pain. He is coughing when he lays down. No fever or chills. No known sick contacts ray no chest pain or shortness of breath. No abdominal pain, nausea, vomiting, diarrhea. MD Complaint: ear pain and decreased hearing Location: bilateral Duration: constant Severity: moderate Relieving factors: NDAIDs Exacerbating factors: position of head Context: recent illness Associated symptoms ear: decreased hearing and rhinorrhea Treatment prior to arrival: none Related Data Previous Rx's ?Medication ?Instructions ?Recorded cyclobenzaprine 10 mg tablet 10 mg PO TID PRN muscle spasm #10 08/30/20 tabs naproxen 500 mg tablet 500 mg PO BID PRN pain #10 tabs 08/30/20 oxycodone-acetaminophen 5 mg-325 1 tab PO Q6H PRN pain #10 tabs 08/30/20 mg tablet (Percocet) prednisone 20 mg tablet 20 mg PO DAILY inflammation 5 08/30/20 days #5 tabs acetaminophen 500 mg tablet 1,000 mg (2 x 500 mg) PO TID PRN 04/10/23 pain #30 tabs cephalexin 500 mg tablet 500 mg PO QID 5 days #20 tabs 04/10/23 ibuprofen 800 mg tablet 800 mg PO Q8H PRN pain #20 tabs 04/10/23 oxycodone 5 mg tablet 5 mg PO Q6H PRN pain #14 tabs 04/10/23 prednisone 20 mg tablet 60 mg (3 x 20 mg) PO DAILY 4 days 04/10/23 #12 tabs benzonatate 100 mg capsule 100 mg PO TID PRN cough #20 caps 05/06/24 fluticasone propionate 50 2 spray intranasal DAILY #16 grams 05/06/24 mcg/actuation nasal spray,suspension (Flonase Allergy Relief) amoxicillin 875 mg-potassium 1 tab PO BID #20 tabs 07/24/24 clavulanate 125 mg tablet ibuprofen 600 mg tablet 600 mg PO Q8H PRN fever or pain 07/24/24 #14 tabs Allergies Allergy/AdvReac Type Severity Reaction Status Date / Time No Known Allergies [NKA] Allergy Mild NOT Verified 07/24/24 20:19 APPLICABLE Review of Systems Review of Systems: Yes all other systems are reviewed and are negative [facility] Social History Social History Alcohol intake: never Physical Exam Vital Signs: Appearance: Alert. Oriented X3. No acute distress. Head: normocephalic, atraumatic. Eyes: Pupils equal, round and reactive to light. ENT: Pharynx normal. No tonsillar swelling or exudate. Bilateral distal EACs are erythematous, bilateral TMs erythematous and bulging, right is worse than left. no mastoid tenderness bilaterally. Neck: Normal inspection. CVS: Normal heart rate and rhythm. Pulses normal. Respiratory: No respiratory distress. Breath sounds normal. Skin: Skin warm and dry. Normal skin color. Normal skin turgor. No rashes. Extremities: No lower extremity edema. No joint swelling. Neuro/psych: Oriented X 3. grossly normal, steady gait Medical Decision Making Medical Decision Making MDM Narrative: 44-year-old male presents to the ER for evaluation of bilateral ear pain, right worse than left for the last 3 or 4 days. URI symptoms present. Examination is most consistent with bilateral ear infection. No evidence of mastoiditis. No tympanic membrane perforation. Will prescribe antibiotics and NSAIDs. Encouraged completion of antibiotics, outpatient follow-up. Stable for discharge home. Differential Diagnosis Differential Diagnoses: The differential diagnosis associated with the presentation includes AOM, otitis externa, sinusitis, covid, flu, viral infection External Record Review External record reviewed: Outpatient record, Prior outpatient labs and Prior outpatient radiology Prescription Management I considered prescription management with: Pain Medication and Antibiotic Critical Care Time Critical Care Time Critical Care Time: No Discharge Plan Discharge Clinical Impression: Acute otitis media Qualifiers: Otitis media type: suppurative Laterality: bilateral Recurrence: not specified as recurrent Spontaneous tympanic membrane rupture: without spontaneous rupture Qualified Code(s): H66.003 - Acute suppurative otitis media without spontaneous rupture of ear drum, bilateral Patient Disposition: Home, Self-Care Instructions: Ear Infection (ED) Additional Instructions: Take the prescribed antibiotics as directed, complete the entire course and do not miss any doses Use Flonase for the next week Take ibuprofen as prescribed for pain and fever Also recommend Tylenol as needed for pain Follow up with your doctor If you develop new or worsening symptoms call 911 or come back to the ER for further evaluation. Prescriptions: New amoxicillin-pot clavulanate 875-125 mg tablet 1 tab PO BID Qty: 20 0RF ibuprofen 600 mg tablet 600 mg PO Q8H PRN (Reason: fever or pain) Qty: 14 0RF No Action prednisone 20 mg tablet 20 mg PO DAILY 5 Days Qty: 5 0RF naproxen 500 mg tablet 500 mg PO BID PRN (Reason: pain) Qty: 10 0RF cyclobenzaprine 10 mg tablet 10 mg PO TID PRN (Reason: muscle spasm) Qty: 10 0RF oxycodone-acetaminophen [Percocet] 5-325 mg tablet 1 tab PO Q6H PRN (Reason: pain) Qty: 10 0RF prednisone 20 mg tablet 60 mg PO DAILY 4 Days Qty: 12 0RF ibuprofen 800 mg tablet 800 mg PO Q8H PRN (Reason: pain) Qty: 20 0RF oxycodone 5 mg tablet 5 mg PO Q6H PRN (Reason: pain) Qty: 14 0RF Rx Instructions: Partial Fill upon patient request. acetaminophen 500 mg tablet 1,000 mg PO TID PRN (Reason: pain) Qty: 30 0RF cephalexin 500 mg tablet 500 mg PO QID 5 Days Qty: 20 0RF fluticasone propionate [Flonase Allergy Relief] 50 mcg/actuation spray,suspension 2 spray intranasal DAILY Qty: 16 0RF Rx Instructions: administer into each nostril benzonatate 100 mg capsule 100 mg PO TID PRN (Reason: cough) Qty: 20 0RF Stand Alone Forms: Work/School Release Print Language: Irish
[2024-07-24 20:25] VITALS: BP 123/81; PULSE 82; RESP 18; TEMP 36.7; O2SAT 97
== END 2024-07-24 20:27 | disposition home or self-care (01) ==
LOC: HO.ED 20:25
PROVIDERS: Emergency Provider Emergency Medicine
DX: H66.003 Acute suppurative otitis media without spontaneous rupture of ear drum, bilateral (principal); H92.03 Otalgia, bilateral
CPT/HCPCS: 99283

== ENCOUNTER 2024-12-08 07:24 | Emergency (ER) | payer OTHER, SELFPAY ==
--- NOTE | ~2024-12-08 | XR_ITS ---
EXAMINATION: XR CHEST CLINICAL INFORMATION: dizziness COMPARISON: 05/06/2024. 07/30/2022. TECHNIQUE: 2 views of the chest were obtained. FINDINGS: The cardiac, hilar, and mediastinal contours are normal. The lungs are clear bilaterally. There is no pneumothorax or pleural effusion. There is no focal osseous or soft tissue abnormality. XR/XR chest 2V IMPRESSION: No active pulmonary disease. Electronically signed by: Ronan Umanzor MD 12/08/2024 08:46 AM [facility]
[2024-12-08 07:39] VITALS: BP 116/89; PULSE 174; RESP 16; TEMP 36.6; O2SAT 98; BMI 30.6
--- NOTE | 2024-12-08 07:45 | ECG_ITS ---
Test Reason : tachy Blood Pressure : */* mmHG Vent. Rate : 167 BPM Atrial Rate : 167 BPM P-R Int : 114 ms QRS Dur : 78 ms QT Int : 296 ms P-R-T Axes : * 75 -49 degrees QTcB Int : 493 ms Sinus tachycardia Abnormal QRS-T angle, consider primary T wave abnormality Abnormal ECG When compared with ECG of 30-Jul-2022 20:20, No significant change was found Referred By: Elio Mai Electronically Signed By: SHAW MCKEON
--- NOTE | 2024-12-08 07:52 | ED_ITS ---
HPI - General Adult General Chief complaint: Dizziness Stated complaint: Weakness, dizziness Time Seen by Provider: 12/08/24 07:52 History of Present Illness ED Provider: Pau KEVIN narrative: The patient is a 44-year-old male who says that he feels like he has had the flu for the last 2 weeks. Last night he started to feel that his heart was racing. He has felt dizzy since then. He says he has had episodes of a racing heart in the past. He says that he wants for a 30 day monitor. These events occurred in [facility]. The patient says that he feels weak and dizzy but has no chest pain or shortness of breath. He does not know if he has had a fever. He has had some body aches. Related Data Previous Rx's ?Medication ?Instructions ?Recorded cyclobenzaprine 10 mg tablet 10 mg PO TID PRN muscle spasm #10 08/30/20 tabs naproxen 500 mg tablet 500 mg PO BID PRN pain #10 tabs 08/30/20 oxycodone-acetaminophen 5 mg-325 1 tab PO Q6H PRN pain #10 tabs 08/30/20 mg tablet (Percocet) prednisone 20 mg tablet 20 mg PO DAILY inflammation 5 08/30/20 days #5 tabs acetaminophen 500 mg tablet 1,000 mg (2 x 500 mg) PO TID PRN 04/10/23 pain #30 tabs cephalexin 500 mg tablet 500 mg PO QID 5 days #20 tabs 04/10/23 ibuprofen 800 mg tablet 800 mg PO Q8H PRN pain #20 tabs 04/10/23 oxycodone 5 mg tablet 5 mg PO Q6H PRN pain #14 tabs 04/10/23 prednisone 20 mg tablet 60 mg (3 x 20 mg) PO DAILY 4 days 04/10/23 #12 tabs benzonatate 100 mg capsule 100 mg PO TID PRN cough #20 caps 05/06/24 fluticasone propionate 50 2 spray intranasal DAILY #16 grams 05/06/24 mcg/actuation nasal spray,suspension (Flonase Allergy Relief) amoxicillin 875 mg-potassium 1 tab PO BID #20 tabs 07/24/24 clavulanate 125 mg tablet ibuprofen 600 mg tablet 600 mg PO Q8H PRN fever or pain 07/24/24 #14 tabs Allergies Allergy/AdvReac Type Severity Reaction Status Date / Time No Known Allergies [NKA] Allergy Mild NOT Verified 12/08/24 07:40 APPLICABLE Review of Systems 2 Review of Systems: Yes all other systems are reviewed and are negative [facility] Social History Social History Alcohol intake: never Physical Exam ED Vital Signs: Vital Signs - 24 hr 12/08/24 07:39 12/08/24 11:10 Temperature 97.9 F 97.9 F Pulse Rate 174 H 174 H Respiratory Rate 16 16 Blood Pressure 116/89 116/89 Pulse Oximetry 98 98 Oxygen Delivery Method Room Air Room Air BMI result Body Mass Index 30.6 Const Other: The patient is awake and alert, pleasant cooperative. He looks mildly unwell but not acutely ill or in obvious distress. He does not appear short of breath. HENMT Other: Face is symmetrical. Mucous membranes moist. Pharynx is unremarkable. Eyes Other: The patient has esotropia. Eyes are otherwise unremarkable. Pupils are round equal. Conjunctivae are clear. Neck Neck: Yes full ROM and Yes no lymphadenopathy Resp Effort & Inspection: normal respiratory effort Cardio Rate: tachycardic Rhythm: regular rhythm Heart sounds: S1 normal heart sound present and S2 normal heart sound present GI Other: Abdomen is soft and nontender Skin Other: Skin is dry and unremarkable Neuro Other: The patient is awake and alert with a normal mental status. The patient has a esotropia but an eye movements are otherwise normal. Pupils are normal. Face is symmetrical. Speech is clear. He moves his extremities normally and appropriately. Extrem Other: No calf swelling or tenderness, no asymmetry, no edema Medications Administered Discontinued Medications Generic Name Dose Route Start Last Admin Trade Name Freq PRN Reason Stop Dose Admin Sodium Chloride 1,000 mls @ 999 mls/hr 12/08/24 08:00 12/08/24 09:56 Ns IV 12/08/24 09:00 Infused .Q1H1M LUCIUS Infusion Medical Decision Making Medical Decision Making [facility] Narrative: The patient is a 44-year-old male presents complaining of flu-like symptoms for the last several days. He has felt his heart racing since yesterday evening. He says that he has had a racing heart like this in the past but has never has been given any particular diagnosis. He says at one point he wore a 30 day monitor. The patient had an EKG that showed a narrow complex tachycardia at 167 beats per minute. The patient was given IV fluids. Apparently not long after getting the IV he had an abrupt change in his heart rate down to the 80s. A repeat EKG showed a normal EKG with normal sinus rhythm at 72 beats per minute. Given the abruptness in the change in the patient's heart rate I suspect that the initial EKG was probably showing SVT. The patient tested positive for influenza today. Chest x-ray is unremarkable and other labs are unremarkable. I suspect the patient has influenza and also has paroxysmal supraventricular tachycardia. He looked quite well after converting to a normal sinus rhythm. He will be discharged with instructions to try to get a primary care doctor and also to try to get in to see cardiology to discuss these episodes of tachycardia. He will be discharged to return if worse. Lab Data 12/08/24 08:11 12/08/24 08:11 Labs: Lab Results 12/08/24 12/08/24 Range/Units 08:11 08:15 WBC 6.3 (4.8-10.8) X10*3/uL RBC 5.05 (4.60-5.80) X10*6/uL Hgb 15.4 (14.0-18.0) g/dl Hct 42.9 (42.0-52.0) % MCV 85.0 (80.0-98.0) fL MCH 30.5 (27.0-33.0) pg MCHC 35.9 (31.0-36.0) g/dl RDW 11.9 (11.0-16.0) % Plt Count 211 (160-400) X10*3/uL MPV 10.3 (9.4-12.4) fL Immature Gran % (Auto) 0.3 (0.0-0.4) % Neut % (Auto) 55.5 (45-73) % Lymph % (Auto) 26.5 (20-40) % [place] % (Auto) 16.3 H (2-11) % Eos % (Auto) 1.1 (0-4) % Baso % (Auto) 0.3 (0-2) % Lymph # (Auto) 1.7 (1.2-4.9) X10*3/uL [place] # (Auto) 1.0 (0.1-1.2) X10*3/uL Eos # (Auto) 0.1 (0.0-0.4) X10*3/uL Baso # (Auto) 0.0 (0.0-0.2) X10*3/uL Abs Immat Gran (auto) 0.02 (0.00-0.03) X10*3/uL Absolute Neuts (auto) 3.5 (2.0-8.3) x10*3/uL Absolute Nucleated RBC 0.000 (0.0-0.012) X10*3/uL Nucleated RBC % (auto) 0.0 (0.0-0.2) /100WBC PT 13.6 H (10.9-12.4) SEC INR 1.2 H (0.9-1.1) Sodium 135 (135-145) mmol/L Potassium 3.9 (3.3-5.1) mmol/L Chloride 103 (96-108) mmol/L Carbon Dioxide 23 (22-29) mmol/L Anion Gap 13 (12-20) BUN 12 (9-16) mg/dL Creatinine 0.78 (0.5-1.4) mg/dL Estim Creat Clear Calc 121.5 Estimated GFR > 60 Random Glucose 207 H (60-115) mg/dL Calcium 10.3 H D (8.4-10.2) mg/dL Magnesium 2.2 (1.6-2.6) mg/dL Total Bilirubin 1.5 H (0.0-1.0) mg/dL Direct Bilirubin 0.5 (0.0-0.5) mg/dL AST 50 H (5-37) U/L ALT 55 H (0-40) U/L Alkaline Phosphatase 133 H (39-117) U/L Troponin I High Sens < 2.7 (<3.5-35.0) ng/L C-Reactive Protein 1.83 H (< or = 0.50) mg/dL Total Protein 8.2 H (6.5-8.0) g/dL Albumin 4.5 (3.5-5.0) g/dL Ethyl Alcohol < 10 mg/dL Influenza Type A (PCR) POSITIVE A (Negative) Influenza Type B (PCR) NEGATIVE (Negative) RSV RNA Qual (PCR) NEGATIVE (Negative) SARS-CoV-2 RNA (RT-PCR) NEGATIVE (Negative) Discharge Plan Discharge Clinical Impression: Influenza, Narrow complex tachycardia Patient Disposition: Home, Self-Care Additional Instructions: You have tested positive for the flu. My hope is that you will get over the flu in the next couple of days. Drink lot of fluids. Hot tea and hot soup is good. Use ibuprofen and acetaminophen as needed for discomfort. Please work on getting a new primary care doctor. I have given you the name of a couple of practices which might be taking new patients. I have also given you the contact information for the cardiology office here at [place]. I would recommend trying to get an appointment to discuss the rapid heart rates you sometimes experience. You may have a condition known as ?supraventricular tachycardia. ? It would be good to see a industrial maintenance instructor to discuss this further. Return to the emergency room if significantly worse. Prescriptions: No Action prednisone 20 mg tablet 20 mg PO DAILY 5 Days Qty: 5 0RF naproxen 500 mg tablet 500 mg PO BID PRN (Reason: pain) Qty: 10 0RF cyclobenzaprine 10 mg tablet 10 mg PO TID PRN (Reason: muscle spasm) Qty: 10 0RF oxycodone-acetaminophen [Percocet] 5-325 mg tablet 1 tab PO Q6H PRN (Reason: pain) Qty: 10 0RF prednisone 20 mg tablet 60 mg PO DAILY 4 Days Qty: 12 0RF ibuprofen 800 mg tablet 800 mg PO Q8H PRN (Reason: pain) Qty: 20 0RF oxycodone 5 mg tablet 5 mg PO Q6H PRN (Reason: pain) Qty: 14 0RF Rx Instructions: Partial Fill upon patient request. acetaminophen 500 mg tablet 1,000 mg PO TID PRN (Reason: pain) Qty: 30 0RF cephalexin 500 mg tablet 500 mg PO QID 5 Days Qty: 20 0RF fluticasone propionate [Flonase Allergy Relief] 50 mcg/actuation spray,suspension 2 spray intranasal DAILY Qty: 16 0RF Rx Instructions: administer into each nostril benzonatate 100 mg capsule 100 mg PO TID PRN (Reason: cough) Qty: 20 0RF amoxicillin-pot clavulanate 875-125 mg tablet 1 tab PO BID Qty: 20 0RF ibuprofen 600 mg tablet 600 mg PO Q8H PRN (Reason: fever or pain) Qty: 14 0RF Referrals: [facility] – [place] [facility] [Provider Group] (Narrow complex tachycardia, possibly SVT) [facility] – [place] Family Medicine [Provider Group] [facility] – [place] [facility] [Provider Group] Interventions: ED Discharge Assessment Last Done: 12/08/24 11:10 Discharge Date/Time: 12/08/24 11:14 Print Language: Angolan
[2024-12-08] MEDS: 0.9 % Sodium Chloride 1,000 ML 999 ML IV (07:59)
[2024-12-08 08:15] LABS: MANUAL DIFF FLAG NO
[2024-12-08 08:16] LABS: Basophils Percent Auto 0.3 % (0-2); Eosinophils Absolute Auto 0.1 X10*3/uL (0.0-0.4); Eosinophils Percent Auto 1.1 % (0-4); Hematocrit 42.9 % (42.0-52.0); Hemoglobin 15.4 g/dl (14.0-18.0); Imm Gran Abs Auto 0.02 X10*3/uL (0.00-0.03); Imm Gran Pct Auto 0.3 % (0.0-0.4); Lymphocytes Absolute Auto 1.7 X10*3/uL (1.2-4.9); Lymphocytes Percent Auto 26.5 % (20-40); Mean Corpuscular HGB Conc 35.9 g/dl (31.0-36.0); Mean Corpuscular Hemoglobin 30.5 pg (27.0-33.0); Mean Platelet Volume 10.3 fL (9.4-12.4); Monocytes Percent Auto 16.3 % (2-11); Neutrophils Absolute Auto 3.5 x10*3/uL (2.0-8.3); Neutrophils Percent Auto 55.5 % (45-73); Platelet Count 211 X10*3/uL (160-400); Red Blood Count 5.05 X10*6/uL (4.60-5.80); Red Cell Distribution Width 11.9 % (11.0-16.0); White Blood Count 6.3 X10*3/uL (4.8-10.8)
--- NOTE | 2024-12-08 08:20 | ECG_ITS ---
Test Reason : TACHYCARDIA Blood Pressure : */* mmHG Vent. Rate : 72 BPM Atrial Rate : 72 BPM P-R Int : 144 ms QRS Dur : 88 ms QT Int : 378 ms P-R-T Axes : 46 41 2 degrees QTcB Int : 413 ms Normal sinus rhythm Normal ECG When compared with ECG of 08-Dec-2024 07:47, Vent. rate has decreased by 95 bpm Referred By: Elio Mai Electronically Signed By: SHAW MCKEON
[2024-12-08 08:26] LABS: INTERNATIONAL NORM RATIO 1.2 (0.9-1.1); Prothrombin Time 13.6 SEC (10.9-12.4)
[2024-12-08 08:36] LABS: Alanine Aminotransferase 55 U/L (0-40); Albumin Level 4.5 g/dL (3.5-5.0); Alkaline Phosphatase 133 U/L (39-117); Anion Gap 13 (12-20); Aspartate Amino Transferase 50 U/L (5-37); Bilirubin Direct 0.5 mg/dL (0.0-0.5); Bilirubin Total 1.5 mg/dL (0.0-1.0); Blood Urea Nitrogen 12 mg/dL (9-16); C Reactive Protein 1.83 mg/dL (< or = 0.50); Calcium 10.3 mg/dL (8.4-10.2); Carbon Dioxide 23 mmol/L (22-29); Chloride 103 mmol/L (96-108); Creatinine Clr Calc Pharmacy 121.5; Estimated Glomerular Filt Rate > 60; Ethanol < 10 mg/dL; Glucose Random 207 mg/dL (60-115); Magnesium 2.2 mg/dL (1.6-2.6); Potassium 3.9 mmol/L (3.3-5.1); Sodium 135 mmol/L (135-145); Total Protein 8.2 g/dL (6.5-8.0)
--- NOTE | 2024-12-08 08:43 | MHC.EDTECH ---
patient went to Xray before EKG was done. Waiting on return to perform.
[2024-12-08 08:44] LABS: Troponin-I High Sensitivity < 2.7 ng/L (<3.5-35.0)
[2024-12-08 09:20] LABS: Influenza A PCR POSITIVE (Negative); Influenza B PCR NEGATIVE (Negative); Resp Syncy Virus RNA Qual PCR NEGATIVE (Negative); SARS COV2 PCR INHOUSE NEGATIVE (Negative)
[2024-12-08 11:10] VITALS: BP 116/89; PULSE 174; RESP 16; TEMP 36.6; O2SAT 98
== END 2024-12-08 11:14 | disposition home or self-care (01) ==
PROVIDERS: Emergency Provider Emergency Medicine
DX: J10.1 Influenza due to other identified influenza virus with other respiratory manifestations (principal); R00.0 Tachycardia, unspecified; R42 Dizziness and giddiness; R11.2 Nausea with vomiting, unspecified; Z03.818 Encounter for observation for suspected exposure to other biological agents ruled out; Z51.81 Encounter for therapeutic drug level monitoring; Z79.899 Other long term (current) drug therapy
CPT/HCPCS: 0241U; 71046; 80048; 80076; 80307; 83735; 84484; 85025; 85610; 86140; 93005; 96360; 96361; 99283; 99284

== ENCOUNTER → 2024-12-08 07:45 | Outpatient (BNV) | payer OTHER, SELFPAY | PROVIDERS: Emergency Provider Emergency Medicine; Visit Provider Internal Medicine | DX: R00.0 Tachycardia, unspecified (principal) | CPT/HCPCS: 93010 ==

== ENCOUNTER → 2024-12-08 08:21 | Outpatient (BNV) | payer OTHER, SELFPAY | PROVIDERS: Emergency Provider Emergency Medicine; Visit Provider Radiology Diagnostic Radiology | DX: R53.1 Weakness (principal); R42 Dizziness and giddiness | CPT/HCPCS: 71046 ==

== ENCOUNTER 2025-04-23 02:22 | Emergency (ER) | payer OTHER, SELFPAY ==
[2025-04-23 02:32] VITALS: BP 141/86; PULSE 106; RESP 20; TEMP 38.3; O2SAT 96; BMI 30.7
[2025-04-23 03:18] LABS: MANUAL DIFF FLAG NO
[2025-04-23 03:19] LABS: Hematocrit 39.0 % (42.0-52.0); Hemoglobin 14.0 g/dl (14.0-18.0); Imm Gran Abs Auto 0.02 X10*3/uL (0.00-0.03); Imm Gran Pct Auto 0.3 % (0.0-0.4); Lymphocytes Absolute Auto 0.7 X10*3/uL (1.2-4.9); Mean Corpuscular HGB Conc 35.9 g/dl (31.0-36.0); Mean Corpuscular Hemoglobin 30.8 pg (27.0-33.0); Mean Corpuscular Volume 85.7 fL (80.0-98.0); NRBC Abs Auto 0.000 X10*3/uL (0.0-0.012); NRBC Pct Auto 0.0 /100WBC (0.0-0.2); Platelet Count 165 X10*3/uL (160-400); Red Blood Count 4.55 X10*6/uL (4.60-5.80); White Blood Count 6.2 X10*3/uL (4.8-10.8)
--- NOTE | 2025-04-23 03:20 | PC.NURSE ---
Pt reports a fever, body aches, and burning to eyes and feet for approx 24 hours. Pt denies sick contacts. Pt took Ibuprofen twice yesterday with relief but states his symptoms worsened throughout the night and he has been unable to sleep.Oral temp 101 at triage. Patient medicated with Tylenol 650 mg PO. Labs drawn and sent to lab, 20 G IV l established in R AC. Patient currently resting in stretcher bed with call huerta with his reach, awaiting to be seen by ED provider.
--- NOTE | 2025-04-23 03:24 | ED_ITS ---
HPI - Fever General Chief Complaint: Fever Stated Complaint: body aches, possible fever Time Seen by Provider: 04/23/25 03:20 Source: patient Mode of arrival: ambulatory Limitations: no limitations History of Present Illness ED Provider: Dr. Sarah Blandon HPI Narrative: Previously healthy 44-year-old male presenting with generalized body aches, joint pain, fevers ongoing for the last 24 hours or so. Admits to associated ?burning pain in his feet?. States that his urine feels hot but there is no associated dysuria. No hematuria. No reported headache or neck stiffness. Denies chest pain, difficulty breathing, cough, sinus congestion, abdominal pain, nausea, vomiting, diarrhea, known sick contacts or recent travel. Related Data Previous Rx's ?Medication ?Instructions ?Recorded cyclobenzaprine 10 mg tablet 10 mg PO TID PRN muscle s pasm #10 08/30/20 tabs naproxen 500 mg tablet 500 mg PO BID PRN pain #10 t abs 08/30/20 oxycodone-acetaminophen 5 mg-325 1 tab PO Q6H PRN pain #10 tabs 08/30/20 mg tablet (Percocet) prednisone 20 mg tablet 20 mg PO DAILY inflammation 5 08/30/20 days #5 tabs acetaminophen 500 mg tablet 1,000 mg (2 x 500 mg) PO T ID PRN 04/10/23 pain #30 tabs cephalexin 500 mg tablet 500 mg PO QID 5 days #20 tab s 04/10/23 ibuprofen 800 mg tablet 800 mg PO Q8H PRN pain #20 t abs 04/10/23 oxycodone 5 mg tablet 5 mg PO Q6H PRN pain #14 tab s 04/10/23 prednisone 20 mg tablet 60 mg (3 x 20 mg) PO DAILY 4 days 04/10/23 #12 tabs benzonatate 100 mg capsule 100 mg PO TID PRN cough #20 caps 05/06/24 fluticasone propionate 50 2 spray intranasal DAILY #16 grams 05/06/24 mcg/actuation nasal spray,suspension (Flonase Allergy Relief) amoxicillin 875 mg-potassium 1 tab PO BID #20 tabs 05/10 clavulanate 125 mg tablet ibuprofen 600 mg tablet 600 mg PO Q8H PRN fever or p ain 07/24/24 #14 tabs Allergies Allergy/AdvReac Type Severity Reaction Status Date / Time No Known Allergies (NKA) Allergy Mild NOT Verified 04/23/25 02:34 APPLICABLE Review of Systems 2 Review of Systems: Yes all other systems are reviewed and are negative (As per HPI) [facility] Past Medical History Attestation statement: The following information was validated with the patient. [facility] Narrative: Denies medical history, nonsmoker Social History Social History Alcohol intake: former Smoked in Last 30 Days: No Use of substances other than those prescribed or required for medical reasons: No Advance Directives: No Advance Directives Information Provided: No Do you have a plan to hurt others: No Plan Physical Exam 2 Vital Signs: Vital Signs: Last Vital Signs Temp 101.3 F H 04/23/25 04:14 Pulse 103 H 04/23/25 04:09 Resp 16 04/23/25 04:09 BP 109/66 04/23/25 04:09 Pulse Ox 96 04/23/25 04:09 O2 Del Method Room Air 04/23/25 04:09 BMI result Body Mass Index 30.7 GENERAL: Ill-Appearing, appears uncomfortable. SKIN: Normal skin color for ethnicity, warm, dry, no rashes noted. HEENT: Normocephalic, atraumatic, no stridor, dry mucous membranes, dentition intact, EOMI, PERRLA. NECK: Soft, supple, full ROM, midline structures nontender, no step-offs, no deformities, no lymphadenopathy. CHEST: Heart regular tachycardia, no murmurs, symmetric chest rise and fall. PULMONARY: Clear to auscultation bilaterally, diminished at the bases, no labored breathing, no wheezes/rhales/rhonchi. ABDOMINAL: Soft, nondistended, nontender, positive bowel sounds in all quadrants. : Deferred. MUSCULOSKELETAL: Normal tone, full range of motion, no deformities, no peripheral edema. NEURO: Alert and oriented x3, CN II through XII intact, equal strength and sensation bilateral upper and lower extremities, no focal neurologic deficits. PSYCHIATRIC: Flat affect, fluid speech, good eye contact and appropriate demeanor. Medications Administered Generic Name Dose Route Start Last Admin Trade Name Freq PRN Reason Stop Dose Admin Lactated Ringer's 1,000 mls @ 999 mls/hr 04/23/25 04:11 04/23/25 04:15 Lr IV 04/23/25 05:11 999 mls/hr .Q1H1M ONE Administration Discontinued Medications Generic Name Dose Route Start Last Admin Trade Name Yo PRN Reason Stop Dose Admin Acetaminophen 650 mg 04/23/25 02:57 04/23/25 03:05 Acetaminophen 325 Mg Tablet PO 04/23/25 02:58 650 mg ONCE ONE Administration Ibuprofen 600 mg 04/23/25 04:10 04/23/25 04:15 Ibuprofen 600 Mg Tablet PO 04/23/25 04:11 600 mg ONCE ONE Administration Medical Decision Making Medical Decision Making [facility] Narrative: Patient presents today with flu-like symptoms. Differential diagnosis includes influenza, coronavirus, pneumonia, upper respiratory infection, among others. Most importantly, this patient is not in any acute respiratory distress. They have normal oxygen levels at room air. His joint pain has totally resolved after fluids and ibuprofen. He is finally defervesced after a course of Tylenol and ibuprofen as well as cold IV fluid. Low suspicion for meningitis given his physical exam today. His abdomen is non peritoneal. Overall nontoxic appearing. I have discussed medication and other home therapies that will help the patient and have discussed strict return precautions. Discussed that although tests are negative today it does not necessarily mean he has no infection. Instructed that symptoms may worsen and the patient might need re-evaluation or even hospitalization in the future, but did not show signs of this at the time of discharge. Differential Diagnosis Differential Diagnoses: The differential diagnosis associated with the presentation includes (As above) Admission/Observation Consideration of admission/observation: Escalation of care including admission/observation considered Lab Data [facility] Lab Attestation statement: I reviewed the patient's lab results. 04/23/25 03:13 04/23/25 03:13 Labs: Lab Results 04/23/25 04/23/25 Range/Units 02:52 03:13 WBC 6.2 (4.8-10.8) X10*3/uL RBC 4.55 L (4.60-5.80) X10*6/uL Hgb 14.0 (14.0-18.0) g/dl Hct 39.0 L (42.0-52.0) % MCV 85.7 (80.0-98.0) fL MCH 30.8 (27.0-33.0) pg MCHC 35.9 (31.0-36.0) g/dl RDW 11.5 (11.0-16.0) % Plt Count 165 (160-400) X10*3/uL MPV 9.8 (9.4-12.4) fL Immature Gran % (Auto) 0.3 (0.0-0.4) % Neut % (Auto) 73.8 H (45-73) % Lymph % (Auto) 11.8 L (20-40) % [place] % (Auto) 13.6 H (2-11) % Eos % (Auto) 0.2 (0-4) % Baso % (Auto) 0.3 (0-2) % Lymph # (Auto) 0.7 L (1.2-4.9) X10*3/uL [place] # (Auto) 0.8 (0.1-1.2) X10*3/uL Eos # (Auto) 0.0 (0.0-0.4) X10*3/uL Baso # (Auto) 0.0 (0.0-0.2) X10*3/uL Abs Immat Gran (auto) 0.02 (0.00-0.03) X10*3/uL Absolute Neuts (auto) 4.6 (2.0-8.3) x10*3/uL Absolute Nucleated RBC 0.000 (0.0-0.012) X10*3/uL Nucleated RBC % (auto) 0.0 (0.0-0.2) /100WBC Sodium 136 (135-145) mmol/L Potassium 4.4 (3.3-5.1) mmol/L Chloride 101 (96-108) mmol/L Carbon Dioxide 25 (22-29) mmol/L Anion Gap 14 (12-20) BUN 15 (9-16) mg/dL Creatinine 0.99 (0.5-1.4) mg/dL Estim Creat Clear Calc 95.9 Estimated GFR > 60 Random Glucose 149 H (60-115) mg/dL Calcium 9.1 D (8.4-10.2) mg/dL Total Bilirubin 1.3 H (0.0-1.0) mg/dL AST 34 (5-37) U/L ALT 34 (0-40) U/L Alkaline Phosphatase 128 H (39-117) U/L Total Protein 7.1 (6.5-8.0) g/dL Albumin 4.4 (3.5-5.0) g/dL COVID-19 (JOSÉ ANTONIO) Negative (Negative) COVID-19 Clin Com See Note Influenza Type A (ASAF) Negative (Negative) Influenza Type B (ASAF) Negative (Negative) Influenza A & B Note See Note Prescription Management I considered prescription management with: Pain Medication Discharge Plan Discharge Clinical Impression: Acute viral syndrome Patient Disposition: Home, Self-Care Instructions: Viral Syndrome (ED) Additional Instructions: Take Tylenol and Motrin around the clock for your pain and fevers. Return to the emergency department with any new or worsening symptoms including severe headaches associated with neck stiffness, chest pain, difficulty breathing, inability to tolerate food or drink, any new symptom that concerns you. Call 911 with any medical emergency. Prescriptions: No Action prednisone 20 mg tablet 20 mg PO DAILY 5 Days Qty: 5 0RF naproxen 500 mg tablet 500 mg PO BID PRN (Reason: pain) Qty: 10 0RF cyclobenzaprine 10 mg tablet 10 mg PO TID PRN (Reason: muscle spasm) Qty: 10 0RF oxycodone-acetaminophen [Percocet] 5-325 mg tablet 1 tab PO Q6H PRN (Reason: pain) Qty: 10 0RF prednisone 20 mg tablet 60 mg PO DAILY 4 Days Qty: 12 0RF ibuprofen 800 mg tablet 800 mg PO Q8H PRN (Reason: pain) Qty: 20 0RF oxycodone 5 mg tablet 5 mg PO Q6H PRN (Reason: pain) Qty: 14 0RF Rx Instructions: Partial Fill upon patient request. acetaminophen 500 mg tablet 1,000 mg PO TID PRN (Reason: pain) Qty: 30 0RF cephalexin 500 mg tablet 500 mg PO QID 5 Days Qty: 20 0RF fluticasone propionate [Flonase Allergy Relief] 50 mcg/actuation spray,suspension 2 spray intranasal DAILY Qty: 16 0RF Rx Instructions: administer into each nostril benzonatate 100 mg capsule 100 mg PO TID PRN (Reason: cough) Qty: 20 0RF amoxicillin-pot clavulanate 875-125 mg tablet 1 tab PO BID Qty: 20 0RF ibuprofen 600 mg tablet 600 mg PO Q8H PRN (Reason: fever or pain) Qty: 14 0RF Print Language: Greenlandic
[2025-04-23 03:35] LABS: COVID-19 Test Negative (Negative); IDNOW Serial# 55D5AD1C; IDNOW Serial# 58CA691E; Influenza B2 Negative (Negative)
[2025-04-23 03:36] LABS: Alanine Aminotransferase 34 U/L (0-40); Albumin Level 4.4 g/dL (3.5-5.0); Alkaline Phosphatase 128 U/L (39-117); Anion Gap 14 (12-20); Aspartate Amino Transferase 34 U/L (5-37); Blood Urea Nitrogen 15 mg/dL (9-16); Calcium 9.1 mg/dL (8.4-10.2); Carbon Dioxide 25 mmol/L (22-29); Chloride 101 mmol/L (96-108); Creatinine Clr Calc Pharmacy 95.9; Estimated Glomerular Filt Rate > 60; Potassium 4.4 mmol/L (3.3-5.1); Sodium 136 mmol/L (135-145); Total Protein 7.1 g/dL (6.5-8.0)
[2025-04-23 04:09] VITALS: BP 109/66; PULSE 103; RESP 16; TEMP 38.5; O2SAT 96
[2025-04-23 04:14] VITALS: TEMP 38.5
[2025-04-23] MEDS: Lactated Ringers 1,000 ML 999 ML IV (04:15)
--- NOTE | 2025-04-23 04:15 | PC.NURSE ---
ED provider informed of repeat oral temp 101.3, new orders obtained for Motrin 600 mg PO and bolus of 1 L of LR. Patient mediated per DEC. Call huerta within patient's reach, plan of care ongoing,
[2025-04-23 05:15] VITALS: TEMP 36.9
[2025-04-23 05:40] VITALS: BP 102/60; PULSE 87; RESP 18; TEMP 36.9; O2SAT 96
[2025-04-23 06:17] VITALS: BP 102/60; PULSE 87; RESP 18; TEMP 36.9; O2SAT 96
== END 2025-04-23 06:17 | disposition home or self-care (01) ==
PROVIDERS: Emergency Provider Emergency Medicine
DX: B34.9 Viral infection, unspecified (principal); R50.9 Fever, unspecified; M79.10 Myalgia, unspecified site; Z03.818 Encounter for observation for suspected exposure to other biological agents ruled out
CPT/HCPCS: 36415; 80053; 85025; 87502; 87635; 96360; 99284; 99285; J7120